=== PATIENT | female | born 1970 | race American Indian/Alaskan Native ===

== ENCOUNTER 2018-03-10 14:09 | Outpatient (CLI) | payer BC ==
--- NOTE | 2018-03-12 14:45 | Mammography Report ---
BILATERAL DIGITAL SCREENING MAMMOGRAM with CAD: 03/10/18 14:09:00 CLINICAL: Routine screening.History of cysts. COMPARISON:07/16/16 FINDINGS: The breasts are extremely dense which limits the sensitivity of mammography. Motion blur on the right CC view. Bilateral parenchymal asymmetries require additional imaging. A right outer partially circumscribed asymmetry on the exaggerated cc view correlates with a previously identified cyst at 9 o'clock but it is much more prominent on the mammogram on this exam. Scattered bilateral calcifications have benign morphology and are unchanged compared to previous exams. IMPRESSION: Bilateral asymmetries requiring further workup. BI-RADS CATEGORY: 0 -- Additional Imaging Evaluation Required RECOMMENDATION: Recall for bilateral spot compression views and bilateral breast ultrasound. The right CC view should also be repeated when she returns. ACR BI-RADS MAMMOGRAPHIC CODES: 0 = Needs additional imaging evaluation; 1 = Negative; 2 = Benign; 3 = Probably benign; 4 = Suspicious; 5 = Malignant; 6 = Known biopsy-proven malignancy COMMENT: 1. Dense breast tissue, i.e., adenosis, fibrocystic changes, etc., may obscure an underlying neoplasm. 2. Approximately 10% of cancers are not detected with mammography. 3. A negative mammography report should not delay biopsy if a clinically suspicious mass is present. COMMENT: Patient follow-up letters are generated via our [employer] application.
== END 2018-03-10 14:10 | disposition home or self-care (01) ==
LOC: SPVWC 14:09
PROVIDERS: ATTEND Obstetrics & Gynecology
DX: Z12.31 Encounter for screening mammogram for malignant neoplasm of breast (principal)
CPT/HCPCS: 77067

== ENCOUNTER 2018-04-21 14:43 | Outpatient (CLI) | payer BC ==
--- NOTE | 2018-04-21 15:51 | Ultrasound Report ---
BILATERAL DIGITAL DIAGNOSTIC MAMMOGRAM and RIGHT BREAST ULTRASOUND: 04/21/18 14:43:00 CLINICAL: Recalled for bilateral asymmetries. COMPARISON:03/10/18 screening FINDINGS: Additional mammographic views of the left breast were performed and are negative.Exaggerated CC and spot compression CC views of the right breast were performed and demonstrate a persistent partially circumscribed outer asymmetry. Ultrasound of the outer right breast was performed and demonstrated several benign cysts. The largest is at 10 o'clock 6 cm from the nipple and correlates with the mammographic asymmetry. It measures 2.2 x 2.1 x 1.1 cm. No solid mass or shadowing. IMPRESSION: Benign cysts of the right breast and negative left breast. BI-RADS CATEGORY: 2 - - Benign RECOMMENDATION: Routine mammographic screening in one year. ACR BI-RADS MAMMOGRAPHIC CODES: 0 = Needs additional imaging evaluation; 1 = Negative; 2 = Benign; 3 = Probably benign; 4 = Suspicious; 5 = Malignant; 6 = Known biopsy-proven malignancy COMMENT: 1. Dense breast tissue, i.e., adenosis, fibrocystic changes, etc., may obscure an underlying neoplasm. 2. Approximately 10% of cancers are not detected with mammography. 3. A negative mammography report should not delay biopsy if a clinically suspicious mass is present. COMMENT: Patient follow-up letters are generated via our [employer] application.
== END 2018-04-21 14:44 | disposition home or self-care (01) ==
LOC: SPVWC 14:43
PROVIDERS: ATTEND Obstetrics & Gynecology
DX: N60.01 Solitary cyst of right breast (principal)
CPT/HCPCS: 77066

== ENCOUNTER 2019-01-29 12:58 | Outpatient (CLI) | payer BC ==
--- NOTE | 2019-01-29 15:41 | Mammography Report ---
BILATERAL DIGITAL SCREENING MAMMOGRAM with CAD : 01/29/19 12:58:00 CLINICAL: Routine screening.Previously confirmed right breast cysts. COMPARISON:03/10/18 FINDINGS: The breasts are heterogeneously dense, which may obscure small masses.A partially circumscribed right outer asymmetry correlates with a previously confirmed cyst. Scattered bilateral calcifications with benign morphology are not significantly changed compared to previous exams. No mass, architectural distortion or suspicious calcifications. IMPRESSION: No mammographic evidence of malignancy. BI-RADS CATEGORY: 2 -- Benign RECOMMENDATION: Routine mammographic screening in one year. COMMENT: Patient follow-up letters are generated by our [employer] application.
== END 2019-01-29 12:59 | disposition home or self-care (01) ==
LOC: SPVWC 12:58
PROVIDERS: ATTEND Obstetrics & Gynecology
DX: Z12.31 Encounter for screening mammogram for malignant neoplasm of breast (principal)
CPT/HCPCS: 77067

== ENCOUNTER 2020-04-14 08:52 | Outpatient (CLI) | payer BC ==
--- NOTE | 2020-04-14 09:33 | Mammography Report ---
DIGITAL SCREENING MAMMOGRAM WITH TOMOSYNTHESIS WITH CAD, 04/14/2020 INDICATION: Routine Screening Mammography. SCREENING MAMMOGRAM TECHNIQUE: Digital bilateral 2D and 3D mammography with tomosynthesis was obtained in the craniocau isabella and mediolateral oblique projections. Computer-Aided Detection (CAD) analysis was used for inter pretation of this study. COMPARISON: 07/16/2016 FINDINGS: Breast Density: The breasts are heterogeneously dense, which may obscure small masses. There is no evidence of dominant mass, suspicious calcifications or architectural distortion in eithe r breast. Multiple scattered tiny bilateral calcifications are present. IMPRESSION: Follow up recommendation: Routine yearly BI-RADS Category 2: Benign. A "normal" or negative report should not discourage follow up or biopsy of a clinically significant f inding. A written summary of these findings will be mailed to the patient. The patient will be entered into a mammography reporting system which will generate a reminder letter for the patient's next appointmen t at the appropriate interval. The [employer] recommends yearly mammograms starting at age 40 and continuing as l jacqueline as a woman is in good health. Breast MRI is recommended for women with an approximate 20-25% or greater lifetime risk of breast cancer, including women with a strong family history of breast or ova rosi cancer or who have been treated for Hodgkin's disease. Signer Name: Jhon Rod MD Signed: 04/14/2020 9:28 AM Workstation Name: [id number]
== END 2020-04-14 08:53 | disposition home or self-care (01) ==
LOC: SPVWC 08:52
PROVIDERS: ATTEND Obstetrics & Gynecology
DX: Z12.31 Encounter for screening mammogram for malignant neoplasm of breast (principal); N64.89 Other specified disorders of breast
CPT/HCPCS: 77067

== ENCOUNTER 2021-08-14 14:42 | Outpatient (CLI) | payer BC ==
--- NOTE | 2021-08-15 07:50 | Mammography Report ---
BILATERAL DIGITAL SCREENING MAMMOGRAM WITH CAD HISTORY: Screening mammogram. TECHNIQUE: Routine digital mammographic imaging performed. This examination was interpreted with kalyani vaughn benefit of Computer-aided Detection analysis. COMPARISON: 04/14/2020, 01/29/2019, 03/10/2018. FINDINGS: Breast Density: heterogeneously dense breast parenchymal pattern which somewhat lessens the sensitivi ty of the evaluation. Digital CC and MLO views demonstrate no mammographic evidence of malignancy. Scattered calcification s in both breasts appear not significantly changed. IMPRESSION: No mammographic evidence of malignancy. If the clinical examination remains stable, recommend bilate ral mammogram in approximately one year. BIRADS 2: Benign Finding(s). FURTHER INFORMATION: According to the [employer], yearly mammograms are recommend ed starting at age 40 and continuing as long as a woman is in good health. Clinical Breast Exams shou ld be part of a periodic health exam-about every 3 years for women in their 20s and 30s and every yea r for women 40 and over. Breast self exam is an option for women starting in their 20s. Any breast ch jatin noted on a breast self exam should be reported promptly to the patient's healthcare provider. Br east MRI is recommended for women with an approximately 20-25% or greater lifetime risk of breast can cer, including women with a strong family history of breast or ovarian cancer and women who have been treated for Hodgkin's disease. A negative Mammography report should not discourage follow up or biopsy of a clinically significant f inding and/or abnormality. Dense breast tissue may obscure small neoplasms. The patient will be entered into a reminder system with a target due date for the next screening mamm ogram. Signer Name: Farooq Farfan MD Signed: 08/15/2021 7:46 AM Workstation Name: [id number]
== END 2021-08-14 14:43 | disposition home or self-care (01) ==
LOC: SPVWC 14:42
PROVIDERS: ATTEND Obstetrics & Gynecology
DX: Z12.31 Encounter for screening mammogram for malignant neoplasm of breast (principal)
CPT/HCPCS: 77067